=== PATIENT | male | born 1985 | race Caucasian/White ===

== ENCOUNTER 2019-10-23 09:46 | Emergency (ER) | payer MEDICAID, OTHER ==
[~2019-10-23] VITALS: Ht 167.6 cm; Wt 78.7 kg
[2019-10-23] MEDS ORDERED: BACT800T5 PO (10:54)
[2019-10-23 11:09] VITALS: BP 116/66
== END 2019-10-23 11:10 | disposition home or self-care (01) ==
LOC: M ED 09:46
DX: L02.811 Cutaneous abscess of head [any part, except face] (principal); Z86.14 Personal history of Methicillin resistant Staphylococcus aureus infection

== ENCOUNTER 2019-11-20 08:30 | Emergency (ER) | payer MEDICAID ==
[~2019-11-20 08:30] MED LIST: BACT800T5 PO
== END 2019-11-20 09:20 | disposition home or self-care (01) ==
LOC: M ED 08:30
DX: L02.811 Cutaneous abscess of head [any part, except face] (principal)